=== PATIENT | female | born 1970 | race Caucasian/White ===

== ENCOUNTER → 2019-08-07 | Outpatient (CLI) | payer BC | LOC: RAD 07:33 | DX: Z01.818 Encounter for other preprocedural examination (principal); K44.9 Diaphragmatic hernia without obstruction or gangrene ==

== ENCOUNTER → 2019-10-22 | Outpatient (CLI) | payer BC ==
[~2019-10-22] MED LIST: OXYCODONE H5 MG/5 ML PO
== END | disposition home or self-care (01) ==
LOC: RAD 13:57
DX: J98.11 Atelectasis (principal); R06.89 Other abnormalities of breathing

== ENCOUNTER 2019-10-23 11:34 | Inpatient (IN) | payer BC ==
[~2019-10-23] VITALS: Ht 165.1 cm; Wt 97.5 kg
[2019-10-23 11:40] VITALS: BP 134/74
[2019-10-23 12:32] LABS: BASO % 0.5 % (0.0-1.0); EOS # 0.1 10*3/uL (0.0-0.4); EOS % 0.9 % (1.0-4.0); HEMATOCRIT 40.3 % (37.0-47.0); LYMPH # 2.3 10*3/uL (1.3-4.4); LYMPH % 28.8 % (27.0-41.0); MEAN CELL VOLUME 90.4 fl (81.0-99.0); MEAN CORPUSCULAR HGB 29.4 pg (27.0-31.0); MEAN CORPUSCULAR HGB CONC 32.5 g/dl (33.0-37.0); MEAN PLATELET VOLUME 10.8 fl (9.6-12.3); MONO # 0.8 10*3/uL (0.1-1.0); MONO % 10.1 % (3.0-9.0); NEUT # 4.8 10*3/uL (2.3-7.9); NEUT % 59.6 % (47.0-73.0); PLATELET COUNT AUTOMATED 262 10*3/uL (130-400); RED BLOOD COUNT 4.46 10*6/uL (4.10-5.10); RED CELL DISTRI WIDTH 12.4 % (0-14.5)
[2019-10-23 12:49] LABS: ALBUMIN 3.6 gm/dl (3.1-4.5); ALKALINE PHOSPHATASE 84 U/L (45-117); BUN 6 mg/dl (7-24); CHLORIDE 105 mmol/L (98-107); CREATININE 0.58 mg/dL (0.55-1.02); LIPASE 90 U/L (73-393); POTASSIUM 3.2 mmol/L (3.5-5.1); SGOT/AST 16 IU/L (3-35); SGPT/ALT 23 U/L (12-78); SODIUM 138 mmol/L (136-145); TOTAL PROTEIN 7.3 gm/dL (6.4-8.2)
[2019-10-23 13:18] LABS: BACTERIA 1+; EPITHELIAL CELLS 16-20; MUCOUS 1+
[2019-10-23 13:49] LABS: COLOR YELLOW (YELLOW)
[2019-10-23 13:50] LABS: BILIRUBIN NEGATIVE (NEGATIVE); BLOOD 2+ (NEGATIVE); CLARITY SL CLOUDY (CLEAR); GLUCOSE NEGATIVE (NEGATIVE); KETONE 3+ (NEGATIVE); LEUKO ESTERASE NEGATIVE (NEGATIVE); NITRITE NEGATIVE (NEGATIVE); UROBILINOGEN 0.2 E.U./dl (0.2-1.0)
--- NOTE | 2019-10-23 14:02 | NUR ---
PT REPORTS THAT HER PAIN IS WORSENING AND SHE WOULD LIKE SOMETHING FOR PAIN. DR. GARDNER MADE AWARE.
[2019-10-23 15:20] VITALS: BP 122/76
[2019-10-23 16:00] VITALS: BP 127/66
--- NOTE | 2019-10-23 16:00 | NUR ---
A 48, admitted to , under the services of BLAISE Vital DO with a diagnosis of EPIGASTRIC ABDOMINAL PAIN. Chief complaint is ABDOMINAL PAIN. Patient arrived via bed from ER. Monitor applied. Initial assessment completed. Vital signs taken and recorded. BLAISE VITAL DO notified of admission to the unit. Orders received. See assessment for past medical history, medications and allergies. Patient and/or family oriented to unit. [facility] visitation policy reviewed. Clothing/patient valuable form completed. JOHN WARNER
[2019-10-23] MEDS ORDERED: OXYCODONE H5 MG/5 ML PO (16:06)
[2019-10-23 16:28] VITALS: BP 127/66
--- NOTE | 2019-10-23 16:46 | NUR ---
DR VERA AT BEDSIDE AND OBSERVES PT SURGICAL INCISIONS. NO NEW ORDERS RECEIVED AT THIS TIME.
--- NOTE | 2019-10-23 16:48 | NUR ---
CALL PLACED TO DR HEARD REGARDING CONSULT, AWAITING CALL BACK AT THIS TIME.
--- NOTE | 2019-10-23 17:00 | NUR ---
SPOKE WITH DR HEARD REGARDING CONSULT. PHYSICIAN STATES THAT PT CAN HAVE CLEAR LIQUID DIET UNTIL MIDNIGHT, NPO AT MIDNIGHT, EGD IN THE MORNING. PHYSICIAN ALSO STATES TO OBTAIN CONSENT FOR EGD.
--- NOTE | 2019-10-23 18:31 | NUR ---
DR VERA NOTIFIED THAT PT MED REC ONLY HAS ONE MEDICATION ON IT AND IS UP TO DATE.
[2019-10-23 20:00] VITALS: BP 107/68
--- NOTE | 2019-10-23 21:07 | NUR ---
PATIENT C/O ABDOMINAL PAIN, MEDICATED WITH NORCO AT THIS TIME. RATES PAIN 11/23. WILL CHECK EFFECTIVENESS.
--- NOTE | 2019-10-23 22:07 | NUR ---
PATIENT SLEEPING, NO SIGNS OF DISTRESS. RESPIRATIONS EASY NON LABORED. NORCO EFFECTIVE. WILL CONTINUE TO MONITOR.
[2019-10-24] VITALS (9 sets, daily range): BP systolic 106–127; BP diastolic 49–93
--- NOTE | 2019-10-24 05:23 | NUR ---
YAYA FAITH [id number] Please refer to the physician's history and physical for past medical history, comorbid conditions, and allergies. Diagnosis: EPIGASTRIC ABDOMINAL PAIN Ethan Score: 23,LOW OR NO RISK WOUND DESCRIPTIONS: Patient has 5 surgical incisions that are pink in color. No open areas or drainage noted at time of assessment. Patient states she had surgery 09/24/[address] Baum out of [facility] and she had her two week follow up appointment and is scheduled to go back on 11/04/19. Surface the patient is resting on: Isoflex SKIN PREVENTION RECOMMENDATION: 1. Pressure redistribution support surface as appropriate 2. Elevate heels 3. Remove boots/TEDS every shift and reapply 4. Head of bed 30 degrees as tolerated 5. Assess nutrition and hydration 6. Manage moisture 7. Avoid the use of containment devices while in bed 8. Use absorptive products on surfaces limit layers of linens on bed 9. Turn and reposition every 1-2 hours in bed and every 1 hour in chair as tolerated 10. Weight shifts every 15 minutes while up in chair 11. Offloading with pillows or device to keep heels elevated off bed 12. Monitor skin at least every shift 13. Inspect under medical devices twice a day
[2019-10-24 06:34] LABS: BASO % 0.6 % (0.0-1.0); EOS # 0.1 10*3/uL (0.0-0.4); EOS % 1.3 % (1.0-4.0); HEMATOCRIT 42.2 % (37.0-47.0); LYMPH # 2.9 10*3/uL (1.3-4.4); MEAN CELL VOLUME 89.8 fl (81.0-99.0); MEAN CORPUSCULAR HGB 29.4 pg (27.0-31.0); MEAN CORPUSCULAR HGB CONC 32.7 g/dl (33.0-37.0); MEAN PLATELET VOLUME 11.8 fl (9.6-12.3); MONO # 0.8 10*3/uL (0.1-1.0); MONO % 11.5 % (3.0-9.0); NEUT # 3.2 10*3/uL (2.3-7.9); NEUT % 45.3 % (47.0-73.0); PLATELET COUNT AUTOMATED 276 10*3/uL (130-400); RED CELL DISTRI WIDTH 12.2 % (0-14.5)
[2019-10-24 06:43] LABS: ALBUMIN 3.5 gm/dl (3.1-4.5); ALKALINE PHOSPHATASE 86 U/L (45-117); BUN 5 mg/dl (7-24); CHLORIDE 105 mmol/L (98-107); CREATININE 0.54 mg/dL (0.55-1.02); POTASSIUM 3.7 mmol/L (3.5-5.1); SGOT/AST 19 IU/L (3-35); SGPT/ALT 20 U/L (12-78); SODIUM 138 mmol/L (136-145); TOTAL PROTEIN 7.4 gm/dL (6.4-8.2)
--- NOTE | 2019-10-24 08:35 | NUR ---
DR HEARD ROUNDED AND SEEN PT AT BEDSIDE AND DISCUSSED EGD FOR LATER THIS MORNING.
--- NOTE | 2019-10-24 09:28 | NUR ---
Nutrition Support Note: Pt 1 month s/p gastric bypass. Pt experiencing epigastric abdominal pain. Pt is currently NPO due to abdominal pain. Will monitor for advancement of PO intake and diet tolerance. Mayelin [employer]etic Student
--- NOTE | 2019-10-24 12:37 | NUR ---
Dock Loader in to talk to patient. Patient states lives at HOME with FAMILY. There are BASEMENT steps in the home. Physician: SAMIRA Pharmacy: [facility] health services: NONE Patient's level of ADLs: INDEPENDENT Patient has working utilities: YES DME: NONE Follow-up physician's appointment after d/c: WILL BE MADE BY HOSPITALIST NURSE DIRECTOR ON DISCHARGE Does patient want to access PORTAL?: NO Discharge plan PT LIVES AT HOME WITH HER FAMILY AND IS INDEPENDENT IN HER CARE. DENIES SHE WILL HAVE ANY NEEDS ON DISCHARGE. PLAN IS TO RETURN HOME WHEN MEDCIALLY STABLE. WILL CONTINUE TO FOLLOW. STATES SHE WILL HAVE A RIDE HOME.. DOREEN MCGUIRE
--- NOTE | 2019-10-24 12:44 | NUR ---
NORCO 5/325 MG GIVEN FOR C/O ABDOMINAL PAIN FOLLOWING EATING FIRST MEAL POST EGD.PT RATES PAIN 10/23.
--- NOTE | 2019-10-24 13:12 | NUR ---
PT RESTING IN BED WATCHING TV.NORCO EFFECTIVE FOR PAIN TO ABDOMEN PER PT.PT APPEARS TO BE COMFORTABLE AT THIS TIME.WILL CONTINUE TO MONITOR. RESPS EASY ON RA. CALL LIGHT IN REACH.
--- NOTE | 2019-10-24 17:08 | NUR ---
NOTIFIED DR HEARD OF PT C/O STOMACH PAIN WHILE EATING. PT REQUESTING TO BE MEDICATED WITH SOMETHING PRIOR TO EATING MEAL. ORDERS RECIEVED.
[2019-10-25] VITALS: BP 128/60
[2019-10-25 08:00] VITALS: BP 102/66
[2019-10-25 12:00] VITALS: BP 120/79
[2019-10-25 16:00] VITALS: BP 117/66
[2019-10-25 20:00] VITALS: BP 125/69
[2019-10-26] VITALS: BP 124/60
--- NOTE | 2019-10-26 06:34 | NUR ---
24 HOUR CHART CHECK COMPLETE
[2019-10-26 08:00] VITALS: BP 118/74
[2019-10-26] MEDS ORDERED: Carafate1 GM PO (09:26)
[2019-10-26] MEDS ORDERED: PANTOPRAZOLE SO40 MG PO (09:26)
--- NOTE | 2019-10-26 11:25 | NUR ---
Discharge instructions reviewed with patient/family. Patient receptive and verbalizes understanding. Follow-up care arranged. Written instructions given to patient/family. DISCHARGE WOUND PICTURES WERE NOT TAKEN BECAUSE PATIENT DID NOT FEEL LIKE IT WAS "NECESSARY." DREA TERRY
== END 2019-10-26 11:25 | disposition home or self-care (01) | DRG 382 ==
LOC: ED 11:34 → EDHOLD 15:21 → 5E 15:21 → ED 15:21 → 5E 15:25 → EDHOLD 15:35 → 5E 10-25 19:32
PROVIDERS: Emergency Medicine; Student in an Organized Health Care Education/Training Program; ADMIT Student in an Organized Health Care Education/Training Program
DX: K28.3 Acute gastrojejunal ulcer without hemorrhage or perforation (principal); E87.6 Hypokalemia; R31.9 Hematuria, unspecified; K82.8 Other specified diseases of gallbladder; K27.9 Peptic ulcer, site unspecified, unspecified as acute or chronic, without hemorrhage or perforation; E66.01 Morbid (severe) obesity due to excess calories; Z83.3 Family history of diabetes mellitus; Z68.35 Body mass index [BMI] 35.0-35.9, adult; Z98.890 Other specified postprocedural states; Z82.49 Family history of ischemic heart disease and other diseases of the circulatory system; Z80.3 Family history of malignant neoplasm of breast; Z90.710 Acquired absence of both cervix and uterus; Z79.899 Other long term (current) drug therapy; Z98.84 Bariatric surgery status

== ENCOUNTER → 2019-12-12 | Outpatient (CLI) | payer BC ==
[~2019-12-12] MED LIST changes: +Carafate1 GM PO; +PANTOPRAZOLE SO40 MG PO
== END | disposition home or self-care (01) ==
LOC: COVID19 00:12
PROVIDERS: ATTEND Surgery
DX: Z01.812 Encounter for preprocedural laboratory examination (principal); Z20.828 Contact with and (suspected) exposure to other viral communicable diseases

== ENCOUNTER → 2019-12-18 | Day surgery (SDC) | payer BC ==
[~2019-12-18] VITALS: Ht 162.5 cm; Wt 88.5 kg
[~2019-12-18] MED LIST changes: +COLACE100 MG PO; +NORCO 5-325 TA1 EACH PO; +ZOFRAN4 MG PO
[2019-12-18 10:08] VITALS: BP 123/69
[2019-12-18 12:15] VITALS: BP 140/62
[2019-12-18 12:30] VITALS: BP 135/90
[2019-12-18 12:45] VITALS: BP 134/69
[2019-12-18 13:00] VITALS: BP 123/60
== END | disposition home or self-care (01) ==
LOC: SDC 12-12 13:15
PROVIDERS: ATTEND Surgery
DX: K80.10 Calculus of gallbladder with chronic cholecystitis without obstruction (principal); E66.9 Obesity, unspecified; Z68.33 Body mass index [BMI] 33.0-33.9, adult; Z98.890 Other specified postprocedural states; Z79.899 Other long term (current) drug therapy

== ENCOUNTER → 2020-04-10 | Outpatient (CLI) | payer BC | END | disposition home or self-care (01) | LOC: COVID19 14:00 | PROVIDERS: ATTEND Internal Medicine | DX: Z20.828 Contact with and (suspected) exposure to other viral communicable diseases (principal) ==

== ENCOUNTER 2021-08-26 05:29 | Inpatient (IN) | payer BC ==
[2021-08-26] VITALS (8 sets, daily range): BP systolic 90–140; BP diastolic 47–67
[~2021-08-26] VITALS: Ht 165.1 cm; Wt 53.1 kg
[2021-08-26 06:38] LABS: BASO # 0.1 10*3/uL (0.0-0.1); BASO % 0.4 % (0.0-1.0); EOS % 0.1 % (1.0-4.0); HEMATOCRIT 39.3 % (37.0-47.0); LYMPH # 2.3 10*3/uL (1.3-4.4); LYMPH % 19.8 % (27.0-41.0); MEAN CELL VOLUME 90.1 fl (81.0-99.0); MEAN CORPUSCULAR HGB 30.3 pg (27.0-31.0); MEAN CORPUSCULAR HGB CONC 33.6 g/dl (33.0-37.0); MEAN PLATELET VOLUME 9.5 fl (9.6-12.3); MONO # 0.7 10*3/uL (0.1-1.0); MONO % 5.7 % (3.0-9.0); NEUT # 8.4 10*3/uL (2.3-7.9); NEUT % 73.6 % (47.0-73.0); PLATELET COUNT AUTOMATED 271 10*3/uL (130-400); RED BLOOD COUNT 4.36 10*6/uL (4.10-5.10); RED CELL DISTRI WIDTH 11.6 % (0-14.5); WHITE BLOOD COUNT 11.4 10*3/uL (4.8-10.8)
[2021-08-26 06:56] LABS: ALKALINE PHOSPHATASE 129 U/L (45-117); BUN 6 mg/dl (7-24); CHLORIDE 105 mmol/L (98-107); CREATININE 0.64 mg/dL (0.55-1.02); LIPASE 75 U/L (73-393); POTASSIUM 3.8 mmol/L (3.5-5.1); SGOT/AST 32 IU/L (3-35); SGPT/ALT 42 U/L (12-78); SODIUM 139 mmol/L (136-145); TOTAL PROTEIN 7.2 gm/dL (6.4-8.2)
[2021-08-27] VITALS: BP 115/70
[2021-08-27 06:03] LABS: CHLORIDE 105 mmol/L (98-107); POTASSIUM 3.9 mmol/L (3.5-5.1); SODIUM 139 mmol/L (136-145)
[2021-08-27 06:07] LABS: BASO % 0.5 % (0.0-1.0); EOS % 0.1 % (1.0-4.0); HEMATOCRIT 37.6 % (37.0-47.0); LYMPH % 23.9 % (27.0-41.0); MEAN CELL VOLUME 92.6 fl (81.0-99.0); MEAN CORPUSCULAR HGB CONC 33.5 g/dl (33.0-37.0); MEAN PLATELET VOLUME 10.2 fl (9.6-12.3); MONO # 0.5 10*3/uL (0.1-1.0); MONO % 6.4 % (3.0-9.0); NEUT # 5.7 10*3/uL (2.3-7.9); NEUT % 68.9 % (47.0-73.0); PLATELET COUNT AUTOMATED 246 10*3/uL (130-400); RED BLOOD COUNT 4.06 10*6/uL (4.10-5.10); RED CELL DISTRI WIDTH 11.8 % (0-14.5); WHITE BLOOD COUNT 8.3 10*3/uL (4.8-10.8)
[2021-08-27 06:15] LABS: ALKALINE PHOSPHATASE 111 U/L (45-117); BUN 7 mg/dl (7-24); CHOLESTEROL 109 mg/dL (<200); CREATININE 0.56 mg/dL (0.55-1.02); FREE T4 1.02 ng/dl (0.76-1.46); LDL CHOLESTEROL 32 mg/dL (9-159); SGOT/AST 23 IU/L (3-35); SGPT/ALT 34 U/L (12-78); TOTAL PROTEIN 6.4 gm/dL (6.4-8.2); TRIGLYCERIDES 67 mg/dl (<150)
[2021-08-27 08:00] VITALS: BP 128/72
[2021-08-27 09:54] LABS: VITAMIN D, 25-HYDROXY 28.1 ng/mL (30-100)
[2021-08-27] MEDS ORDERED: PROTONIX40 MG PO (11:35)
[2021-08-27 11:57] VITALS: BP 113/51
[2021-08-27 15:57] VITALS: BP 99/44
[2021-08-27 20:00] VITALS: BP 94/44
[2021-08-28] VITALS: BP 98/42
[2021-08-28 08:00] VITALS: BP 116/64
[2021-08-28] MEDS ORDERED: Carafate1 GM PO (12:56)
[2021-08-28] MEDS ORDERED: PAROXETINE10 MG PO (12:56)
[2021-08-28] MEDS ORDERED: ZOFRAN4 MG PO (12:57)
== END 2021-08-28 13:10 | disposition home or self-care (01) | DRG 392 ==
LOC: ED 05:29 → EDHOLD 09:36 → 4E 09:36
PROVIDERS: Emergency Medicine; Registered Nurse; ADMIT Emergency Medicine; ATTEND Emergency Medicine
PROC: 0DJ08ZZ Inspection of Upper Intestinal Tract, Via Natural or Artificial Opening Endoscopic (ICD-10-PCS; principal; 2021-08-26)
DX: R10.13 Epigastric pain (principal); K27.9 Peptic ulcer, site unspecified, unspecified as acute or chronic, without hemorrhage or perforation; Z20.822 Contact with and (suspected) exposure to COVID-19; E83.41 Hypermagnesemia; R73.9 Hyperglycemia, unspecified; Z90.49 Acquired absence of other specified parts of digestive tract; Z90.710 Acquired absence of both cervix and uterus; Z83.3 Family history of diabetes mellitus; Z82.49 Family history of ischemic heart disease and other diseases of the circulatory system; Z79.899 Other long term (current) drug therapy

== ENCOUNTER 2022-01-02 02:57 | Inpatient (IN) | payer BC ==
[2021-12-29 14:21] VITALS: BP 108/68
[~2022-01-02] VITALS: Ht 162.5 cm; Wt 66.8 kg
[2022-01-02] VITALS (8 sets, daily range): BP systolic 108–122; BP diastolic 43–64
[~2022-01-02 02:57] MED LIST changes: +PAROXETINE10 MG PO; +PROTONIX40 MG PO
[2022-01-03] VITALS: BP 101/45
[2022-01-03 06:25] LABS: BASO % 0.2 % (0.0-1.0); HEMATOCRIT 31.1 % (37.0-47.0); LYMPH # 2.2 10*3/uL (1.3-4.4); LYMPH % 22.2 % (27.0-41.0); MEAN CELL VOLUME 91.7 fl (81.0-99.0); MEAN CORPUSCULAR HGB CONC 33.8 g/dl (33.0-37.0); MEAN PLATELET VOLUME 9.6 fl (9.6-12.3); MONO # 0.8 10*3/uL (0.1-1.0); MONO % 7.5 % (3.0-9.0); NEUT # 7.1 10*3/uL (2.3-7.9); NEUT % 69.8 % (47.0-73.0); PLATELET COUNT AUTOMATED 221 10*3/uL (130-400); RED BLOOD COUNT 3.39 10*6/uL (4.10-5.10); RED CELL DISTRI WIDTH 11.8 % (0-14.5); WHITE BLOOD COUNT 10.1 10*3/uL (4.8-10.8)
[2022-01-03 06:30] LABS: ACT PARTIAL THROMBO TIME 27.2 SECONDS (20.0-32.1); INTERNATIONAL NORM RATIO 1.1 (2.0-3.5)
[2022-01-03 06:43] LABS: CHLORIDE 110 mmol/L (98-107); SODIUM 142 mmol/L (136-145)
[2022-01-03 06:57] LABS: ALKALINE PHOSPHATASE 76 U/L (45-117); BUN 9 mg/dl (7-24); CHOLESTEROL 106 mg/dL (<200); CREATININE 0.52 mg/dL (0.55-1.02); LDL CHOLESTEROL 30 mg/dL (9-159); SGOT/AST 15 IU/L (3-35); SGPT/ALT 18 U/L (12-78); TOTAL PROTEIN 5.3 gm/dL (6.4-8.2); TRIGLYCERIDES 60 mg/dl (<150)
[2022-01-03 08:00] VITALS: BP 111/45
[2022-01-03 12:00] VITALS: BP 94/54
[2022-01-03 16:00] VITALS: BP 98/50
[2022-01-03 20:00] VITALS: BP 96/55
[2022-01-04] VITALS: BP 97/50
[2022-01-04 08:00] VITALS: BP 97/53
[2022-01-04 08:38] LABS: VITAMIN D, 25-HYDROXY 32.1 ng/mL (30-100)
[2022-01-04] MEDS ORDERED: ONDANSETRON HYDR4 MG PO (11:13)
[2022-01-04] MEDS ORDERED: HYDROCODONE-AC1 EAC1 PO (11:13)
[2022-01-04] MEDS ORDERED: CYCLOBENZAPRINE10 MG PO (11:15)
[2022-01-04] MEDS ORDERED: COLACE100 MG PO (11:15)
== END 2022-01-04 12:45 | disposition home or self-care (01) | DRG 584 ==
LOC: SDC 02:57 → 4E 10:34 → SDC 14:00 → 4E 01-04 12:45
PROVIDERS: Internal Medicine; ADMIT Internal Medicine; ATTEND Internal Medicine
PROC: 0HTV0ZZ Resection of Bilateral Breast, Open Approach (ICD-10-PCS; principal; 2022-01-02)
PROC: 3E0T3BZ Introduction of Anesthetic Agent into Peripheral Nerves and Plexi, Percutaneous Approach (ICD-10-PCS; 2022-01-02)
PROC: 3E0T33Z Introduction of Anti-inflammatory into Peripheral Nerves and Plexi, Percutaneous Approach (ICD-10-PCS; 2022-01-02)
DX: N60.92 Unspecified benign mammary dysplasia of left breast (principal); E43 Unspecified severe protein-calorie malnutrition; G89.18 Other acute postprocedural pain; E66.9 Obesity, unspecified; N60.91 Unspecified benign mammary dysplasia of right breast; G43.909 Migraine, unspecified, not intractable, without status migrainosus; K21.9 Gastro-esophageal reflux disease without esophagitis; D64.9 Anemia, unspecified; Z90.13 Acquired absence of bilateral breasts and nipples; Z90.49 Acquired absence of other specified parts of digestive tract; Z90.710 Acquired absence of both cervix and uterus; Z83.3 Family history of diabetes mellitus; Z80.3 Family history of malignant neoplasm of breast; Z82.49 Family history of ischemic heart disease and other diseases of the circulatory system; Z98.84 Bariatric surgery status; Z68.25 Body mass index [BMI] 25.0-25.9, adult

== ENCOUNTER → 2022-08-10 | Day surgery (SDC) | payer BC ==
[~2022-08-10] VITALS: Ht 165.1 cm; Wt 61.2 kg
[~2022-08-10] MED LIST changes: +B12 ACTIVE1000 MCG PO; +BIOTIN1000 MC1 PO; +CYCLOBENZAPRINE10 MG PO; +HYDROCODONE-AC1 EAC1 PO; +ONDANSETRON HYDR4 M1 PO; +ONDANSETRON HYDR4 MG PO; +PAROXETINE HCL10 MG PO; +SCOOBY-DOO1 EAC1 PO; +VITAMIN C500 M4 PO; +VITAMIN D350 MC3 PO
[2022-08-10 08:36] VITALS: BP 121/57
[2022-08-10 09:21] VITALS: BP 110/49
[2022-08-10 09:36] VITALS: BP 126/67
[2022-08-10 09:51] VITALS: BP 113/60
== END | disposition home or self-care (01) ==
LOC: SDC 08-07 12:30
PROVIDERS: ATTEND Surgery
DX: R10.13 Epigastric pain (principal); K21.9 Gastro-esophageal reflux disease without esophagitis; K28.9 Gastrojejunal ulcer, unspecified as acute or chronic, without hemorrhage or perforation; Z98.84 Bariatric surgery status; Z90.710 Acquired absence of both cervix and uterus; Z98.890 Other specified postprocedural states; Z98.0 Intestinal bypass and anastomosis status; Z90.13 Acquired absence of bilateral breasts and nipples; Z87.11 Personal history of peptic ulcer disease

== ENCOUNTER 2023-08-31 07:03 | Emergency (ER) | payer BC ==
[~2023-08-31] VITALS: Ht 162.5 cm; Wt 63.5 kg
[2023-08-31] MEDS ORDERED: FAMOTIDINE 50 ML IV ONE (07:20)
[2023-08-31] MEDS ORDERED: diphenhydrAMINE hydrochloride 50 MG/ML VIAL IV ONE (07:20)
[2023-08-31] MEDS ORDERED: SODIUM CHLORIDE 0.9% 1,000 ML IV ONE (07:20)
[2023-08-31] MEDS ORDERED: Metoclopramide Hydrochloride 10 MG/2 ML AMP IV ONE (07:20)
[2023-08-31 07:53] LABS: BASO % 0.8 % (0.0-1.0); EOS % 0.6 % (1.0-4.0); HEMATOCRIT 41.2 % (37.0-47.0); LYMPH % 41.9 % (27.0-41.0); MEAN CELL VOLUME 92.6 fl (81.0-99.0); MEAN CORPUSCULAR HGB 30.3 pg (27.0-31.0); MEAN CORPUSCULAR HGB CONC 32.8 g/dl (33.0-37.0); MEAN PLATELET VOLUME 9.8 fl (9.6-12.3); MONO # 0.4 10*3/uL (0.1-1.0); MONO % 9.3 % (3.0-9.0); NEUT # 2.2 10*3/uL (2.3-7.9); NEUT % 47.4 % (47.0-73.0); PLATELET COUNT AUTOMATED 345 10*3/uL (130-400); RED BLOOD COUNT 4.45 10*6/uL (4.10-5.10); RED CELL DISTRI WIDTH 11.8 % (0-14.5); WHITE BLOOD COUNT 4.7 10*3/uL (4.8-10.8)
[2023-08-31 08:04] LABS: ALKALINE PHOSPHATASE 88 U/L (46-116); BUN 7 mg/dl (9-23); CHLORIDE 104 mmol/L (98-107); LIPASE 41 U/L (12-53); POTASSIUM 3.6 mmol/L (3.4-5.1); SGPT/ALT 16 U/L (5-49); TOTAL PROTEIN 7.6 gm/dL (6.0-8.0)
[2023-08-31] MEDS ORDERED: REGLAN10 M1 PO (08:40)
[2023-08-31] MEDS ORDERED: ONDANSETRON4 MG SL (09:23)
== END 2023-08-31 09:09 | disposition home or self-care (01) ==
LOC: ED 07:03
PROVIDERS: Emergency Medicine
DX: R11.2 Nausea with vomiting, unspecified (principal); R19.7 Diarrhea, unspecified; Z90.49 Acquired absence of other specified parts of digestive tract; Z90.710 Acquired absence of both cervix and uterus; Z90.13 Acquired absence of bilateral breasts and nipples; Z98.890 Other specified postprocedural states

== ENCOUNTER 2024-08-13 10:38 | Emergency (ER) | payer BC ==
[~2024-08-13] VITALS: Ht 162.5 cm; Wt 63.5 kg
[~2024-08-13 10:38] MED LIST changes: +ONDANSETRON4 MG SL; +REGLAN10 M1 PO
[2024-08-13] MEDS ORDERED: CARAFATE1 G1 PO ×2 (10:47→13:28)
[2024-08-13] MEDS ORDERED: Pantoprazole Sodium 40 MG VIAL IV ONE (11:10)
[2024-08-13] MEDS ORDERED: SODIUM CHLORIDE 0.9% 1,000 ML IV ONE (11:10)
[2024-08-13] MEDS ORDERED: Ondansetron Hydrochloride 4 MG/2 ML VIAL IV ONE (11:10)
[2024-08-13] MEDS ORDERED: IOHEXOL 300 MG/ML 100 ML VIAL IV ONE (11:10)
[2024-08-13] MEDS ORDERED: HYDROmorphONE Hydrochloride 0.5 MG/0.5 ML SYRINGE IV ONE (11:10)
[2024-08-13 11:28] LABS: BASO % 0.6 % (0.0-1.0); EOS % 0.2 % (1.0-4.0); HEMATOCRIT 39.2 % (37.0-47.0); MEAN CELL VOLUME 93.3 fl (81.0-99.0); MEAN CORPUSCULAR HGB 29.8 pg (27.0-31.0); MEAN CORPUSCULAR HGB CONC 31.9 g/dl (33.0-37.0); MEAN PLATELET VOLUME 9.5 fl (9.6-12.3); MONO # 0.5 10*3/uL (0.1-1.0); MONO % 8.1 % (3.0-9.0); NEUT # 4.1 10*3/uL (2.3-7.9); NEUT % 61.2 % (47.0-73.0); PLATELET COUNT AUTOMATED 265 10*3/uL (130-400); RED CELL DISTRI WIDTH 13.2 % (0-14.5); WHITE BLOOD COUNT 6.7 10*3/uL (4.8-10.8)
[2024-08-13 11:48] LABS: ALKALINE PHOSPHATASE 84 U/L (46-116); BUN 7 mg/dl (9-23); CHLORIDE 103 mmol/L (98-107); LIPASE 37 U/L (12-53); POTASSIUM 3.9 mmol/L (3.4-5.1); SGPT/ALT 21 U/L (5-49)
[2024-08-13] MEDS ORDERED: HYDROCODONE-AC1 EAC1 PO (13:25)
[2024-08-13] MEDS ORDERED: Phenergan25 MG PO (13:28)
[2024-08-13] MEDS ORDERED: PEPCID40 MG PO (13:28)
[2024-08-13] MEDS ORDERED: Ondansetron4 MG PO (13:28)
[2024-08-13] MEDS ORDERED: MG-AL HYDROXIDE/SIMETICONE 30 ML UDC PO STA (13:38)
[2024-08-13] MEDS ORDERED: Dicyclomine Hydrochloride 20 MG/10 ML OSYR PO STA (13:38)
[2024-08-13] MEDS ORDERED: Lidocaine Hydrochloride 15 ML UDC PO STA (13:38)
== END 2024-08-13 13:37 | disposition home or self-care (01) ==
LOC: ED 10:38
PROVIDERS: Nurse Practitioner Family
DX: R10.13 Epigastric pain (principal); R11.2 Nausea with vomiting, unspecified; G43.909 Migraine, unspecified, not intractable, without status migrainosus; E66.9 Obesity, unspecified; Z68.39 Body mass index [BMI] 39.0-39.9, adult; Z90.49 Acquired absence of other specified parts of digestive tract; Z90.710 Acquired absence of both cervix and uterus; Z98.890 Other specified postprocedural states

== ENCOUNTER 2024-08-24 14:35 | Emergency (ER) | payer BC ==
[~2024-08-24] VITALS: Ht 162.5 cm; Wt 62.6 kg
[~2024-08-24 14:35] MED LIST changes: +CARAFATE1 G1 PO; +Ondansetron4 MG PO; +PEPCID40 MG PO; +Phenergan25 MG PO
== END 2024-08-24 17:45 | disposition home or self-care (01) ==
LOC: ED 14:35
DX: S93.401A Sprain of unspecified ligament of right ankle, initial encounter (principal); Z79.899 Other long term (current) drug therapy; Z98.84 Bariatric surgery status; Z90.711 Acquired absence of uterus with remaining cervical stump; Z90.49 Acquired absence of other specified parts of digestive tract; X50.1XXA Overexertion from prolonged static or awkward postures, initial encounter; Y93.89 Activity, other specified; Y92.89 Other specified places as the place of occurrence of the external cause; Y99.8 Other external cause status